=== PATIENT | female | born 1935 | race Caucasian/White ===

== ENCOUNTER 2016-03-19 17:09 | Emergency (ER) | payer MEDICARE, MEDICAID ==
[~2016-03-19] VITALS: Ht 157.5 cm; Wt 54.5 kg
[~2016-03-19 17:09] MED LIST: AMMO226L2 TP; ASPI81TA3 PO; DOCU-41 PO; OMEP20TA86 PO; OXYB5TAB10 PO; PRAM0.128 PO; QUET200T PO
[2016-03-19 17:15] VITALS: BP 130/79; PULSE 79; RESP 16; O2SAT 95
--- NOTE | 2016-03-19 18:44 | ED.REPORT ---
HPI-General Illness Date of Service Mar 19, 2016 ED Provider: Fred Davis MD Pt is a 80 year old female with dementia presenting to the ED due to behavior problems. The pt has reportedly been acting out, hitting, spitting, displaying aggressive behavior, and having sleep disturbances. Denies fever, dysuria, SOB, cough, recent falls. Pt states that she is here because of her left foot, and describes pain and weakness to it. Pt had a recent fall in September 2015, which injured her left foot (pressure ulcer). 2 weeks ago, pt transitioned to a new usp at [facility], which is when the change in behavior began. The pt denies being at all aggressive or having sleep disturbances. Nursing Notes Stated Complaint: DEMENTIA,BEHAVIOR PROBLEMS Chief Complaint: General Complaint Nursing Notes Reviewed: Yes (Sports[employer] not reconciled) Allergies: Coded Allergies: Penicillins (Verified Allergy, Severe, Rash, 10/11/15) iodine (Verified Allergy, Severe, 10/11/15) aripiprazole (Verified Allergy, Unknown, 10/11/15) hydrocodone (Verified Allergy, Unknown, 10/11/15) niacin (Verified Allergy, Unknown, 10/11/15) procaine (Verified Allergy, Unknown, 10/11/15) tramadol HCl (Verified Allergy, Unknown, 10/11/15) Scheduled Aspirin Chew (Aspirin Chew) 81 Mg Chew 81 MG PO DAILY Omeprazole (Omeprazole) 20 Mg Tablet.dr 20 MG PO BIDAC Oxybutynin Chloride (Oxybutynin Chloride) 5 Mg Tablet 5 MG PO HS Pramipexole Dihydrochloride (Pramipexole Dihydrochloride) 0.125 Mg Tablet 0.125 MG PO HS Take one tab 2-3 hours before bed for restless legs Quetiapine Fumarate (Seroquel) 200 Mg Tablet 200 MG PO HS Quetiapine Fumarate (Seroquel) 50 Mg Tablet 50 MG PO HS Give with evening dose of 200mg seroquel for total evening dose of 250mg. Scheduled PRN Ammonium Lactate (Lac-Hydrin Five) 113 Gm Lotion 113 GM TP BID PRN PRN exzema Docusate Sodium (Colace) 100 Mg Capsule 100 MG PO BID PRN PRN For Constipation General Time Seen by MD: 18:40 Chief Complaint Other (Change in Behavior) Hx Obtained From: Post Form Remover Unable to Obtain Hx: Mental status Arrived By: Walk-in Sudden in Onset?: No Onset Occurred: More than a week ago... 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, acute rhabdomyolysis MRI September 2015 [facility]2016: Seroquel 100mg in AM/200mg in PM Celexa 20mg daily MVI Eye gtt ASA 81mg QAM omeprazole 20mg QAM Oxybutinin 5mg at bedtime Pramixipole 0.125mg at bedtime PRNs - Zofran 1 tab q4H, Chloride 5/325 1-2 q4, Mucinex 600mg, Benadryl 25mg q4 (1 dose on the ), Tylenol 650mg q4 PRN, Eczema lotion Past Medical History Bipolar Cognitive disorder Frontotemporal dementia Restless legs GERD Hyperactive bladder Glaucoma Suicide attempts Past Surgical History Bowel obstruction sx foot surgery hysterectormy BL oophrectomy Family History noncontributory Smoking History Never Smoker Social History Alcohol Use: "Social" Drug Use: Denies drug use Other Social History: Ambulatory Status Independent Review of Systems Unable to Obtain ROS Mental status Full Review of Systems Constitutional: Denies: Fever Respiratory: Denies: Non-productive cough, Shortness of breath Female: Denies: Dysuria Musculoskeletal: Reports: Extremity pain (Left foot) Psychiatric: Reports: Agitation Physical Exam Vital Signs Vital Signs Date Time Temp Pulse Resp B/P Pulse Ox O2 Delivery O2 Flow Rate FiO2 03/19/16 21:10 72 18 143/60 99 Room Air 03/19/16 17:15 36.5 79 16 130/79 95 Room Air Initial VS: Reviewed, Vital signs normal Head / Eyes: Atraumatic, Normocephalic, PERRL ENT: Mucous membranes moist, Conjunctiva normal, No scleral icterus Respiratory: Breath sounds normal, Clear to auscultation, No respiratory distress Cardiovascular: Regular rate & rhythm, Heart sounds normal, Intact distal pulses Abdomen / GI: Soft, Non-tender, No guarding, No rebound, No distention Extremities: Vascular intact, Neuro intact, No swelling, No tenderness Skin: Warm, Dry, No cyanosis Neurologic: Alert, Oriented, Nonfocal Psychiatric: Mood/affect normal, Behavior normal, Normal thought content General/Constitutional: Awake, Well appearing Pleasantly demented. Not currently agitated. No signs of trauma. Early sacral decubitus ulcer A new air bed mattress is now being used, care discussed Re-Eval/Medical Decision Med Decision/Clinical Course This is a 80-year-old female presents to the power of traffic law attorney requested a medication adjustment to help with some increased agitation. He is chronically demented, said some behavioral issues-he does have a history of bipolar. She is on Seroquel. She is currently non-ambulatory and bedbound following an injury in September of last year. She has a chronic left foot drop. She has just been recently transitioned environments and is now at [facility] over the past 2 weeks and with that change this been some increasing agitation with her allegedly biting, kicking and spitting (all of which she denies) and some increased restlessness at night. Been no recent infectious symptoms. No falls. No cough, no shortness of breath. No nausea vomiting intake has been normal. The power of traffic law attorney is quite convinced the change in environment this led to an increase in agitation. They are looking to obtain medication adjustment to facilitate with these symptoms and are requesting and addition of antipsychotics. They have attempted to schedule the patient at [facility], but the appointment is not until June-they are on the cancellation list. He had tried getting into the primary care physician, and he would try to go to urgent care, but they have ultimately wound up at the emergency department requesting assistance. Patient's, cooperative here. She is not currently agitated. She has normal vitals. She does not have a fever. She does have a left foot drop. She is demented. She gets upset and calls all the statements made by the facility and the power of traffic law attorney "lies". The returning provides a reasonable history, behavioral adjustment. The power of traffic law attorney is also understanding the emergency department as a suboptimal location, but indicates really has nowhere else to go. I am not finding much on the clinical exam and history to indicate Need for an extended laboratory testing. She has had recent extended laboratory testing looking for causes. The next step was that she did not bring with her the patient's current medication list. It actually took several hours and repeated calls and request for faxing to obtain the medication list, and also required my calling that facility, and simply having him to be the medication dosing to me over the phone. The patient is on Seroquel. She is at 200 mg at bedtime, 100 mg in the morning and this was increased about a month ago. I think rather than adding a second antipsychotic it makes sense to slightly increase the Seroquel-and given her age I recommended increasing the dose of 250 mg at bedtime. Power of traffic law attorney and the facility are comfortable with this. The patient received a first dose in the department. Everyone is been advised to monitor for signs of oversedation which be the risk of to much Seroquel. The patient is discharged in stable condition Source of Hx: Old records Re-Evaluation/Progress Note: Multiple calls to facility to have them Fax med list Time of Eval: 20:42 Patient Status: Condition improved Re-Evaluation/Progress Note: Updated the patient and discussed plan for discharge. Pt understands and agrees. Consultation : Call Returned at: 20:10 Note: Spoke with [facility] to discuss medication list. Counseled Regarding: Diagnosis, Lab results, Need for follow-up, When/why to return to ED Discharge & Departure Primary Impression: Agitation Additional Impressions: Dementia Decubitus ulcer of sacral region, stage 1 Disposition: Home Discharge Condition All VS Reviewed: Yes Condition: Improved Additional Instructions: 1. I recommend increasing the seroquel to 250mg at bedtime (an increase from the current 200mg dose) and continue the 100mg in the morning. 2. Continue her other medications 3. Return if new or worsening symptoms 4. Monitor for increasing sedation or somnolence which can happen with Seroquel. This is why we are increase the dose but only 50 mg, rather than the standard 100 mg. 5. She received this evening's dose of 250 mg in the emergency department. Referrals: Belen Howell DO (PCP) Scribe Attestation Portions of this note were transcribed by Chandrika Harris. I, Dr. Davis personally performed the history, physical exam and medical decision-making; I reviewed and confirmed the accuracy of the information in the transcribed note. Signed by: Preeti Schmidt, 03/19/2016 and 2056. copies to: Belen Howell Matthew F MD Mar 19, 2016 18:44 CHANDRIKA HARRIS Mar 19, 2016 19:11
[2016-03-19] MEDS ORDERED: QUET50TA PO (20:52)
[2016-03-19 21:10] VITALS: BP 143/60; PULSE 72; RESP 18; O2SAT 99
== END 2016-03-19 21:33 | disposition home or self-care (01) ==
LOC: SED 18:08
DX: R45.1 Restlessness and agitation (principal); F03.90 Unspecified dementia, unspecified severity, without behavioral disturbance, psychotic disturbance, mood disturbance, and anxiety; L89.151 Pressure ulcer of sacral region, stage 1; K21.9 Gastro-esophageal reflux disease without esophagitis; F31.9 Bipolar disorder, unspecified; H40.9 Unspecified glaucoma; Z79.82 Long term (current) use of aspirin; Z88.0 Allergy status to penicillin; Z88.5 Allergy status to narcotic agent; Z88.8 Allergy status to other drugs, medicaments and biological substances